=== PATIENT | female | born 1940 | race Caucasian/White ===

== ENCOUNTER 2025-02-27 23:47 | Inpatient (IN) | payer MEDICARE ==
[~2025-02-27] VITALS: Ht 152.4 cm; Wt 68.2 kg
[2025-02-28] MEDS ORDERED: ONDANSETRON ODT 4 MG TAB.RAPDIS ONE (00:09)
[2025-02-28] MEDS ORDERED: HYDROCODONE/APAP 10-325 MG TABLET ONE (00:09)
[2025-02-28] MEDS: ONDANSETRON ODT 4 MG TAB.RAPDIS SL ONE (00:16)
[2025-02-28] MEDS: HYDROCODONE/APAP 10-325 MG TABLET PO ONE (00:16)
[2025-02-28 00:19] LABS: PLATELET COUNT (AUTO) 158 K/uL (179-408); RED BLOOD CELL COUNT(AUTO) 5.04 MIL/uL (3.63-4.92); RED CELL DISTRIBUTION WIDTH 13.4 % (12.3-17.7); WHITE BLOOD COUNT (AUTO) 11.8 K/uL (3.8-11.8)
[2025-02-28 00:26] LABS: CREATININE 1.1 mg/dL (0.6-1.3); SODIUM SERUM 140 mmol/L (136-145); UREA NITROGEN, BLOOD 18 mg/dL (7-18)
[2025-02-28 00:32] LABS: ASPARTATE AMINOTRANSFERASE 21 U/L (15-37); TOTAL PROTEIN, SERUM 7.2 g/dL (6.4-8.2)
[2025-02-28] MEDS ORDERED: HYDROMORPHONE 1 MG/1 ML DISP.SYRIN ONE (01:02)
[2025-02-28] MEDS: HYDROMORPHONE 1 MG/1 ML DISP.SYRIN IM ONE (01:03)
[2025-02-28] MEDS ORDERED: BENZ200C53 PO (03:06)
[2025-02-28] MEDS ORDERED: AMLO2.5T4 PO (03:06)
[2025-02-28] MEDS ORDERED: BUTA-284 PO (03:06)
[2025-02-28] MEDS ORDERED: LEVO75TA7 PO (03:06)
[2025-02-28] MEDS ORDERED: MELO-107 PO (03:06)
[2025-02-28] MEDS ORDERED: ASPI-612 PO (03:06)
[2025-02-28] MEDS ORDERED: FAMO40TA7 PO (03:06)
[2025-02-28] MEDS ORDERED: FLUT1BLS6 IH (03:06)
[2025-02-28] MEDS ORDERED: METO-357 PO (03:06)
[2025-02-28] MEDS ORDERED: CAND16TA25 PO (03:06)
[2025-02-28] MEDS ORDERED: ONDA-104 PO (03:07)
[2025-02-28] MEDS ORDERED: [UNRECOGNIZED DRUG - CODE] PO (03:07)
[2025-02-28] MEDS ORDERED: ROSU40TA PO (03:07)
[2025-02-28] MEDS ORDERED: ZOLP10TA2 PO (03:07)
[2025-02-28] MEDS ORDERED: ACETAMINOPHEN 325 MG TABLET PO PRN (03:15)
[2025-02-28] MEDS ORDERED: POTASSIUM CHLORIDE 10 MEQ TAB.PRT.SR PO ONE (03:15)
[2025-02-28] MEDS ORDERED: REMEDY ESSENTIAL ZINC PASTE 113 GM TP PRN (03:15)
[2025-02-28] MEDS ORDERED: MAGNESIUM HYDROXIDE 30 ML LIQUID UDC PO PRN (03:15)
[2025-02-28 04:00] VITALS: BP 128/71; TEMP 98; O2SAT 96
[2025-02-28] MEDS ORDERED: MELOXICAM 7.5 MG TABLET PO PRN (04:00)
[2025-02-28] MEDS: ONDANSETRON 4 MG/2 ML VIAL IV PRN (04:38)
[2025-02-28] MEDS: POTASSIUM CHLORIDE 10 MEQ TAB.PRT.SR PO ONE (05:48)
[2025-02-28] MEDS: LEVOTHYROXINE SODIUM 75 MCG TABLET PO SCH (06:08)
[2025-02-28] MEDS ORDERED: LIDOCAINE 5% PATCH TD SCH (08:00)
[2025-02-28] MEDS: METOPROLOL SUCCINATE XL 50 MG TAB.SR.24H PO SCH (08:54)
[2025-02-28] MEDS: HYDROCODONE/APAP 10-325 MG TABLET PO PRN (08:55)
[2025-02-28] MEDS: AMLODIPINE 2.5 MG TABLET PO SCH (08:56)
[2025-02-28] MEDS: VALSARTAN 160 MG TABLET PO SCH (08:56)
[2025-02-28] MEDS: ASPIRIN 325 MG TABLET PO SCH (08:56)
[2025-02-28] MEDS: FAMOTIDINE 20 MG TABLET PO SCH (08:56)
[2025-02-28] MEDS ORDERED: CANDESARTAN CILEXETIL 16 MG TABLET PO SCH ×2 (09:00)
[2025-02-28 11:14] VITALS: BP 144/69; TEMP 97.7; O2SAT 95
[2025-02-28] MEDS: LIDOCAINE 5% PATCH TD SCH (15:30)
[2025-02-28 15:52] LABS: *BILIRUBIN,URIN NEGATIVE (NEGATIVE); *BLOOD, URINE NEGATIVE (NEGATIVE); *CLARITY,URINE CLEAR (CLEAR); *COLOR,URINE YELLOW (YELLOW); *KETONES,URINE NEGATIVE (NEGATIVE); *PROTEIN,URINE NEGATIVE (NEGATIVE); *UROBILINOGEN,URINE 0.2 E.U./dl (NORMAL); LEUKOCYTE ESTERASE ,URINE NEGATIVE (NEGATIVE); NITRITE, URINE NEGATIVE (NEGATIVE); UGLUCOSE NEGATIVE (NEGATIVE)
[2025-02-28 15:53] VITALS: BP 138/75; TEMP 98; O2SAT 96
[2025-02-28] MEDS: MELOXICAM 7.5 MG TABLET PO SCH (17:00)
[2025-02-28 17:20] VITALS: O2SAT 96
[2025-02-28] MEDS: DEXAMETHASONE SOD PHOSPHATE 10 MG INJ IV ONE (18:03)
[2025-02-28 20:00] VITALS: BP 143/76; TEMP 98.7
[2025-02-28] MEDS: ATORVASTATIN 40 MG TABLET PO SCH (21:18)
[2025-02-28] MEDS: CARISOPRODOL 350 MG TABLET PO PRN (21:18)
[2025-03-01 00:30] VITALS: O2SAT 96
[2025-03-01] MEDS: PANTOPRAZOLE SODIUM 40 MG TABLET.DR PO SCH (06:25)
[2025-03-01 06:58] LABS: PLATELET COUNT (AUTO) 133 K/uL (179-408); RED BLOOD CELL COUNT(AUTO) 4.65 MIL/uL (3.63-4.92); RED CELL DISTRIBUTION WIDTH 13.4 % (12.3-17.7); WHITE BLOOD COUNT (AUTO) 9.0 K/uL (3.8-11.8)
[2025-03-01 07:58] LABS: ASPARTATE AMINOTRANSFERASE 34 U/L (15-37); CREATINE KINASE, TOTAL 286 U/L (26-192); CREATININE 1.1 mg/dL (0.6-1.3); SODIUM SERUM 138 mmol/L (136-145); TOTAL PROTEIN, SERUM 7.2 g/dL (6.4-8.2); UREA NITROGEN, BLOOD 23 mg/dL (7-18)
[2025-03-01] MEDS: ONDANSETRON 4 MG/2 ML VIAL IV PRN (11:03)
[2025-03-01 11:57] VITALS: BP 139/83; TEMP 98.9; O2SAT 91
[2025-03-01 13:37] VITALS: O2SAT 96
[2025-03-01 16:43] VITALS: BP 102/78; TEMP 98.2; O2SAT 94
[2025-03-01 19:42] VITALS: BP 151/78; TEMP 98; O2SAT 94
[2025-03-02] MEDS ORDERED: ZOLPIDEM 5 MG TABLET PO SCH (00:36)
[2025-03-02] MEDS: ZOLPIDEM 5 MG TABLET PO ONE (00:49)
[2025-03-02 05:22] VITALS: BP 140/63; TEMP 98.1; O2SAT 94
[2025-03-02 09:40] VITALS: BP 127/79; TEMP 98.3; O2SAT 95
[2025-03-02 11:08] VITALS: BP 141/77; TEMP 98.7; O2SAT 96
[2025-03-02] MEDS ORDERED: LIDO30AD10 TD (14:11)
[2025-03-02] MEDS ORDERED: PANT40TA49 PO (14:11)
[2025-03-02] MEDS ORDERED: MENT113O TP (14:11)
[2025-03-02] MEDS ORDERED: VALS160T29 PO (14:11)
[2025-03-02] MEDS ORDERED: CARI350T27 PO (14:11)
[2025-03-02] MEDS ORDERED: MAGN400O6 PO (14:11)
[2025-03-02] MEDS ORDERED: HYDR-3980 PO (14:11)
[2025-03-02] MEDS ORDERED: ACET325T53 PO (14:11)
[2025-03-02] MEDS ORDERED: MELO-105 PO (14:11)
[2025-03-02] MEDS ORDERED: ATOR40TA PO (14:11)
[2025-03-03] MEDS ORDERED: HYDR25TA4 PO (16:45)
== END 2025-03-02 16:28 | DRG 552 ==
LOC: ER 23:59 → MEDSURG3 02-28 02:45
PROVIDERS: ADMIT Nurse Practitioner Acute Care; ATTEND Nurse Practitioner Acute Care
DX: S22.079A Unspecified fracture of T9-T10 vertebra, initial encounter for closed fracture (principal); S32.019A Unspecified fracture of first lumbar vertebra, initial encounter for closed fracture; D68.59 Other primary thrombophilia; M62.82 Rhabdomyolysis; R17 Unspecified jaundice; W19.XXXA Unspecified fall, initial encounter; Y92.003 Bedroom of unspecified non-institutional (private) residence as the place of occurrence of the external cause; Z74.09 Other reduced mobility; I25.10 Atherosclerotic heart disease of native coronary artery without angina pectoris; I25.2 Old myocardial infarction; E03.9 Hypothyroidism, unspecified; R73.9 Hyperglycemia, unspecified; T42.6X5A Adverse effect of other antiepileptic and sedative-hypnotic drugs, initial encounter; R29.6 Repeated falls; E66.9 Obesity, unspecified; Z68.29 Body mass index [BMI] 29.0-29.9, adult; Z82.49 Family history of ischemic heart disease and other diseases of the circulatory system; Z87.891 Personal history of nicotine dependence; Z95.5 Presence of coronary angioplasty implant and graft; K57.30 Diverticulosis of large intestine without perforation or abscess without bleeding; I11.9 Hypertensive heart disease without heart failure; E78.5 Hyperlipidemia, unspecified; D69.6 Thrombocytopenia, unspecified; K44.9 Diaphragmatic hernia without obstruction or gangrene; E87.6 Hypokalemia; G25.0 Essential tremor
CPT/HCPCS: 36415; 71045; 72072; 72110; 72131; 83735; 84100; 84443; 84484; 85025; 87086; A4606; A4663; C1758; G0378; J1100; J1171; J2405; Q0162

== ENCOUNTER 2025-03-01 11:47 | Inpatient (IN) | payer MEDICARE ==
[~2025-03-01] VITALS: Ht 152.4 cm; Wt 68.0 kg
[~2025-03-01 11:47] MED LIST: AMLO2.5T4 PO; ASPI-612 PO; BENZ200C53 PO; BUTA-284 PO; CAND16TA25 PO; FLUT1BLS6 IH; LEVO75TA7 PO; METO-357 PO; ONDA-104 PO; ROSU40TA PO; ZOLP10TA2 PO
[2025-03-01 12:21] VITALS: BP 139/83; TEMP 98.9
[2025-03-01 13:04] VITALS: BP 139/83; TEMP 98.9
[2025-03-02] MEDS ORDERED: MELO-105 PO (14:11)
[2025-03-02] MEDS ORDERED: HYDR-3980 PO (14:11)
[2025-03-02] MEDS ORDERED: ACET325T53 PO (14:11)
[2025-03-02] MEDS ORDERED: ATOR40TA PO (14:11)
[2025-03-02] MEDS ORDERED: VALS160T29 PO (14:11)
[2025-03-02] MEDS ORDERED: MAGN400O6 PO (14:11)
[2025-03-02] MEDS ORDERED: LIDO30AD10 TD (14:11)
[2025-03-02] MEDS ORDERED: MENT113O TP (14:11)
[2025-03-02] MEDS ORDERED: PANT40TA49 PO (14:11)
[2025-03-02] MEDS ORDERED: CARI350T27 PO (14:11)
[2025-03-02 17:12] VITALS: BP 109/65; TEMP 98; O2SAT 96
[2025-03-02] MEDS ORDERED: ASPIRIN PO PRN (18:00)
[2025-03-02] MEDS ORDERED: CALMOSEPTINE 113 GM OINTMENT TP PRN (18:00)
[2025-03-02] MEDS ORDERED: CAFFEINE PO PRN (18:00)
[2025-03-02] MEDS ORDERED: ACETAMINOPHEN 325 MG TABLET-SA PATIENTS-PAIN ONLY PO PRN (18:00)
[2025-03-02] MEDS ORDERED: BUTALBITAL PO PRN (18:00)
[2025-03-02] MEDS ORDERED: ONDANSETRON HCL 4 MG TABLET PO PRN (18:00)
[2025-03-02] MEDS ORDERED: [UNRECOGNIZED DRUG - OTHER] PO PRN (18:00)
[2025-03-02] MEDS: HYDROCODONE/APAP 10-325 MG TABLET PO PRN (19:46)
[2025-03-02] MEDS: ALPRAZOLAM 0.5 MG TABLET PO PRN ×2 (19:48→21:29)
[2025-03-02] MEDS: ATORVASTATIN 40 MG TABLET PO SCH (20:09)
[2025-03-02] MEDS: CARISOPRODOL 350 MG TABLET PO PRN (22:26)
[2025-03-02] MEDS: HYDROCODONE/APAP 10-325 MG TABLET PO ONE (22:26)
[2025-03-03 05:36] VITALS: BP 148/58; TEMP 97.8; O2SAT 95
[2025-03-03] MEDS: PANTOPRAZOLE SODIUM 40 MG TABLET.DR PO SCH (06:14)
[2025-03-03] MEDS: LEVOTHYROXINE SODIUM 75 MCG TABLET PO SCH (06:15)
[2025-03-03] MEDS: VALSARTAN 160 MG TABLET PO SCH (08:45)
[2025-03-03] MEDS: METOPROLOL SUCCINATE XL 50 MG TAB.SR.24H PO SCH (08:46)
[2025-03-03] MEDS: LIDOCAINE 5% PATCH TD SCH (08:46)
[2025-03-03] MEDS: AMLODIPINE 2.5 MG TABLET PO SCH (08:46)
[2025-03-03] MEDS ORDERED: MELOXICAM 7.5 MG TABLET PO SCH (09:00)
[2025-03-03] MEDS: ASPIRIN EC 325 MG TABLET.DR PO SCH (09:33)
[2025-03-03] MEDS ORDERED: BUTALB/ACETAMINOPHEN/CAFFEINE CAPSULE PO PRN (09:45)
[2025-03-03 10:20] VITALS: O2SAT 95
[2025-03-03] MEDS: DIAZEPAM 5 MG TABLET PO PRN (15:14)
[2025-03-03] MEDS ORDERED: HYDR25TA4 PO (16:45)
[2025-03-03 20:00] VITALS: BP 92/50; TEMP 99; O2SAT 92
[2025-03-03] MEDS: ACETAMINOPHEN 325 MG TABLET PO PRN (21:20)
[2025-03-03 21:56] VITALS: O2SAT 95
[2025-03-04 06:34] VITALS: BP 155/68; TEMP 97.6; O2SAT 93
[2025-03-04 08:54] VITALS: BP 116/45; TEMP 97; O2SAT 95
[2025-03-04 14:25] VITALS: O2SAT 95
[2025-03-04 16:00] VITALS: BP 117/70; TEMP 99.2; O2SAT 96
[2025-03-04] MEDS: OXYCODONE HCL 10 MG TAB.SR.12H PO SCH (20:23)
[2025-03-04 20:43] VITALS: BP 124/67; TEMP 98; O2SAT 94
[2025-03-05] VITALS (7 sets, daily range): BP systolic 112–134; BP diastolic 60–74; TEMP 97.2–98.2; O2SAT 96–97
[2025-03-05] MEDS: ZOLPIDEM 5 MG TABLET PO PRN (01:25)
[2025-03-05] MEDS: ENSURE ENLIVE (VAN) 240 ML LIQUID PO SCH (17:04)
[2025-03-06] VITALS (9 sets, daily range): BP systolic 115–140; BP diastolic 51–76; TEMP 97.3–98.9; O2SAT 91–97
[2025-03-06] MEDS ORDERED: [UNRECOGNIZED DRUG - OTHER] PO PRN (14:45)
[2025-03-06] MEDS ORDERED: SIMETHICONE 125 MG PO PRN (14:45)
[2025-03-06] MEDS: [UNRECOGNIZED DRUG - OTHER] PO PRN (21:15)
[2025-03-06] MEDS: SODIUM CITRATE PO PRN (21:15)
[2025-03-07 05:00] VITALS: BP 149/69; TEMP 97.5; O2SAT 92
[2025-03-07 08:39] VITALS: BP 148/95; TEMP 98.4; O2SAT 91
[2025-03-07 15:15] VITALS: O2SAT 93
[2025-03-07 16:21] VITALS: BP 105/45; TEMP 97.8; O2SAT 94
[2025-03-07 19:40] VITALS: BP 125/71; TEMP 98.3; O2SAT 90
[2025-03-07 20:47] VITALS: O2SAT 91
[2025-03-08 06:24] VITALS: BP 125/59; TEMP 98; O2SAT 92
[2025-03-08 08:00] VITALS: BP 139/64; TEMP 97; O2SAT 97
[2025-03-08 08:03] LABS: PLATELET COUNT (AUTO) 162 K/uL (179-408); RED BLOOD CELL COUNT(AUTO) 4.11 MIL/uL (3.63-4.92); RED CELL DISTRIBUTION WIDTH 12.9 % (12.3-17.7); WHITE BLOOD COUNT (AUTO) 4.9 K/uL (3.8-11.8)
[2025-03-08 08:13] LABS: CREATININE 1.0 mg/dL (0.6-1.3); SODIUM SERUM 134 mmol/L (136-145); UREA NITROGEN, BLOOD 28 mg/dL (7-18)
[2025-03-08] MEDS: LIDOCAINE 5% PATCH TD SCH (08:22)
[2025-03-08 20:00] VITALS: BP 146/78; TEMP 98.4; O2SAT 90
[2025-03-08 20:32] VITALS: BP 146/78; TEMP 98.4; O2SAT 90
[2025-03-08] MEDS: NYSTATIN CREAM 30 GM TUBE TOP SCH (21:54)
[2025-03-09 05:00] VITALS: BP 127/62; TEMP 97.8; O2SAT 93
[2025-03-09 08:00] VITALS: BP 126/77; TEMP 97.4; O2SAT 94
[2025-03-09] MEDS: FUROSEMIDE 20 MG TABLET PO SCH (08:54)
[2025-03-09 15:36] VITALS: BP 106/71; TEMP 97.8; O2SAT 93
[2025-03-09 16:40] VITALS: O2SAT 94
[2025-03-09 19:35] VITALS: BP 102/56; TEMP 97.9; O2SAT 92; O2SAT 93
[2025-03-10 07:58] VITALS: BP 109/59; TEMP 97.8; O2SAT 93
[2025-03-10 16:00] VITALS: BP 127/66; TEMP 97.7; O2SAT 94
[2025-03-10 20:06] VITALS: BP 126/60; TEMP 98.4; O2SAT 97
[2025-03-11 00:49] VITALS: O2SAT 95
[2025-03-11 06:29] VITALS: BP 112/62; TEMP 98.2; O2SAT 90
[2025-03-11 08:00] VITALS: BP 85/44; TEMP 97.8; O2SAT 96
[2025-03-11] MEDS: IV NORMAL SALINE 500 ML IV ONE (11:02)
[2025-03-11 16:45] VITALS: O2SAT 94
[2025-03-11 20:00] VITALS: BP 115/62; TEMP 97.7; O2SAT 91
[2025-03-12 05:00] VITALS: BP 140/71; TEMP 97.4; O2SAT 92
[2025-03-12 08:00] VITALS: BP 106/48; TEMP 97.6; O2SAT 95
[2025-03-12 16:00] VITALS: BP 94/52; TEMP 97.6; O2SAT 95
[2025-03-12 20:12] VITALS: BP 104/60; TEMP 98.7; O2SAT 91
[2025-03-13 04:00] VITALS: BP 127/60; TEMP 97.6; O2SAT 95
[2025-03-13 06:20] VITALS: BP 120/57; TEMP 98.5; O2SAT 90
[2025-03-13 08:00] VITALS: BP 120/66; TEMP 97; O2SAT 92
[2025-03-13] MEDS: MAGNESIUM HYDROXIDE 30 ML LIQUID UDC PO PRN (21:35)
[2025-03-13 22:18] VITALS: BP 100/44; TEMP 98.1; O2SAT 92
[2025-03-14 05:40] VITALS: BP 100/67; TEMP 98; O2SAT 90
[2025-03-14 08:00] VITALS: BP 115/54; TEMP 97.8; O2SAT 95
[2025-03-14 15:28] VITALS: BP 113/47; TEMP 97.8; O2SAT 95
[2025-03-14 20:37] VITALS: BP 100/41; TEMP 98.4; O2SAT 96
[2025-03-15 05:17] VITALS: O2SAT 94
[2025-03-15 06:25] VITALS: BP 119/46; TEMP 98.5; O2SAT 92
[2025-03-15 07:17] VITALS: BP 93/73; TEMP 97.8; O2SAT 93
[2025-03-15] MEDS: REMEDY ESSENTIAL ZINC PASTE 113 GM TP PRN (09:13)
[2025-03-15 15:45] VITALS: BP 110/50; TEMP 98.1; O2SAT 95
== END 2025-03-15 18:00 | disposition home health service (06) | DRG 560 ==
PROVIDERS: ADMIT Physical Medicine & Rehabilitation Pain Medicine; ATTEND Physical Medicine & Rehabilitation Pain Medicine
DX: S22.079D Unspecified fracture of T9-T10 vertebra, subsequent encounter for fracture with routine healing (principal); D68.59 Other primary thrombophilia; S32.019D Unspecified fracture of first lumbar vertebra, subsequent encounter for fracture with routine healing; W18.30XD Fall on same level, unspecified, subsequent encounter; I25.10 Atherosclerotic heart disease of native coronary artery without angina pectoris; I25.2 Old myocardial infarction; I10 Essential (primary) hypertension; E66.9 Obesity, unspecified; E03.9 Hypothyroidism, unspecified; E78.5 Hyperlipidemia, unspecified; K44.9 Diaphragmatic hernia without obstruction or gangrene; K57.30 Diverticulosis of large intestine without perforation or abscess without bleeding; D69.6 Thrombocytopenia, unspecified; Z68.29 Body mass index [BMI] 29.0-29.9, adult; Z82.49 Family history of ischemic heart disease and other diseases of the circulatory system; Z87.891 Personal history of nicotine dependence; Z95.5 Presence of coronary angioplasty implant and graft; G25.0 Essential tremor; I95.9 Hypotension, unspecified; R73.9 Hyperglycemia, unspecified
CPT/HCPCS: 36415; 70030-TC; 70450; 72131; 84484; 85025; 93005; 93307; 97535-GO-CO; A4663; J7040